=== PATIENT | female | born 1980 | race Caucasian/White ===

== ENCOUNTER 2016-12-09 08:00 | Emergency (ER) | payer MEDICAID, OTHER ==
[2016-12-09 08:13] VITALS: BP 138/70
--- NOTE | 2016-12-09 08:24 | UC ---
Throat Pain/Nasal Mike HPI - HPI Summary HPI Summary: [address], PAIN WITH SWALLOWING. FEELS ACHY AND HAS CHILLS. NO DOCUMENTED FEVER. NO N/V/D. DAUGHTER DIAGNOSED WITH STREP 2 DAYS AGO. - History of Current Complaint Chief Complaint: UCGeneralIllness Stated Complaint: SORE THROAT CHILLS Time Seen by Provider: 12/09/16 08:17 Hx Obtained From: Patient Hx Last Menstrual Period: november 15 Onset/Duration: Gradual Onset, Lasting Days, Still Present Severity: Moderate Pain Intensity: 7 Pain Scale Used: 0-10 Numeric Cough: Nonproductive Associated Signs & Symptoms: Positive: Negative - Allergies/Home Medications Allergies/Adverse Reactions: Allergies Allergy/AdvReac Type Severity Reaction Status Date / Time Latex Allergy Intermediate Hives Verified 08/03/14 16:32 PMH/Surg Hx/FS Hx/Imm Hx Respiratory History Of: Reports: Asthma Neurological History Of: Reports: Migraine - Surgical History Surgical History: None - Family History Known Family History: Positive: Hypertension - Social History Alcohol Use: None Substance Use Type: None Smoking Status (MU): Never Smoked Tobacco - Immunization History Most Recent Influenza Vaccination: 06/27/14 Most Recent Tetanus Shot: 03/24 Most Recent Pneumonia Vaccination: unknown Review of Systems Constitutional: Chills, Fatigue ENT: Sore Throat, Nasal Discharge Respiratory: Cough Cardiovascular: Negative Gastrointestinal: Negative All Other Systems Reviewed And Are Negative: Yes Physical Exam Triage Information Reviewed: Yes Appearance: No Pain Distress, Well-Nourished, Ill-Appearing - MILDLY Vital Signs: Initial Vital Signs Temp 99.0 F 12/09/16 08:07 Pulse 100 12/09/16 08:07 Resp 18 12/09/16 08:07 BP 138/70 12/09/16 08:07 Pulse Ox 98 12/09/16 08:07 Eyes: Positive: Conjunctiva Clear ENT: Positive: Hearing grossly normal, Pharyngeal erythema, TMs normal, Tonsillar swelling, Tonsillar exudate, Other: - PALATAL PETECHIAE Neck: Positive: Supple, Tenderness @ - SPFL CERVICAL LAD, Enlarged Nodes @ - SPFL CERVICAL LAD Respiratory Exam: Normal Cardiovascular Exam: Normal Abdomen Description: Positive: Soft Musculoskeletal: Positive: No Edema Neurological: Positive: Alert Psychological: Positive: Age Appropriate Behavior Skin: Negative: rashes Throat Pain/Nasal Course/Dx - Differential Dx/Diagnosis Provider Diagnoses: STREP PHARYNGITIS - CLINICAL DIAGNOSIS Discharge - Discharge Plan Condition: Stable Disposition: HOME Prescriptions: Amoxicillin CAP* [Amoxicillin 500 MG CAP*] 1,000 mg PO Q12H #40 cap Patient Education Materials: Strep Throat (ED) Referrals: Rohith Roque MD [Primary Care Provider] - If Needed Additional Instructions: OTC CHLORASEPTIC OR CEPACOL LOZENGES FOR SORE THROAT NEEDED ONCE SYMPTOMS RESOLVED - NEW TOOTHBRUSH DO NOT SHARE FOOD, DRINK, UTENSILS
== END 2016-12-09 08:35 | disposition home or self-care (01) ==
LOC: UCEAST 08:00
DX: J02.0 Streptococcal pharyngitis (principal); R21 Rash and other nonspecific skin eruption; J45.909 Unspecified asthma, uncomplicated; G43.909 Migraine, unspecified, not intractable, without status migrainosus; Z91.040 Latex allergy status
CPT/HCPCS: 99212; G0463

== ENCOUNTER 2017-05-18 09:13 | Emergency (ER) | payer OTHER, MEDICAID ==
--- NOTE | 2017-05-18 10:45 | UC ---
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 - History of Current Complaint Chief Complaint: UCGeneralIllness Stated Complaint: VOMITING Time Seen by Provider: 05/18/17 10:45 Hx Obtained From: Patient Hx Last Menstrual Period: november 15 ?: Yes Onset/Duration: Sudden Onset, Lasting Hours - began last night, Still Present Timing: Constant Severity Initially: Moderate Severity Currently: Severe Pain Intensity: 7 Pain Scale Used: 0-10 Numeric Location: Diffuse Radiates: No Character: Cramping Aggravating Factor(s): Nothing Alleviating Factor(s): Nothing Associated Signs and Symptoms: Positive: Decreased Appetite, Nausea, Vomiting Allergies/Adverse Reactions: Allergies Allergy/AdvReac Type Severity Reaction Status Date / Time Latex Allergy Intermediate Hives Verified 05/18/17 09:54 Home Medications: Home Medications NK [No Home Medications Reported] 05/18/17 [History Confirmed 05/18/17] PMH/Surg Hx/FS Hx/Imm Hx Previously Healthy: Yes - Surgical History Surgical History: None - Family History Known Family History: Positive: Hypertension - Social History Occupation: Employed Full-time Lives: With Family Alcohol Use: None Substance Use Type: None Smoking Status (MU): Never Smoked Tobacco - Immunization History Most Recent Influenza Vaccination: 06/27/14 Most Recent Tetanus Shot: 03/24 Most Recent Pneumonia Vaccination: unknown Review of Systems Constitutional: Chills Skin: Negative Eyes: Negative ENT: Negative Respiratory: Negative Cardiovascular: Negative Gastrointestinal: Abdominal Pain, Vomiting, Nausea Genitourinary: Negative Motor: Weakness - right arm with pronator drift Neurovascular: Negative Musculoskeletal: Negative Neurological: Headache Psychological: Negative All Other Systems Reviewed And Are Negative: Yes Physical Exam Triage Information Reviewed: Yes Appearance: Well-Nourished, Ill-Appearing, Pain Distress Vital Signs: Initial Vital Signs Temp 98.2 F 05/18/17 09:48 Pulse 89 05/18/17 09:48 Resp 18 05/18/17 09:48 BP 154/97 05/18/17 09:48 Pulse Ox 100 05/18/17 09:48 Vital Signs Reviewed: Yes Eye Exam: Normal Eyes: Positive: Conjunctiva Clear ENT Exam: Normal ENT: Positive: Normal ENT inspection, Hearing grossly normal, Pharynx normal. Negative: Nasal congestion, Nasal drainage, Trismus, Muffled/hoarse voice Dental Exam: Normal Neck exam: Normal Neck: Positive: Supple, Nontender, No Lymphadenopathy Respiratory Exam: Normal Respiratory: Positive: Chest non-tender, Lungs clear, Normal breath sounds, No respiratory distress, No accessory muscle use Cardiovascular Exam: Normal Cardiovascular: Positive: RRR, No Murmur, Pulses Normal, Brisk Capillary Refill Abdominal Exam: Normal Abdomen Description: Positive: No Organomegaly, Soft Bowel Sounds: Positive: Present Musculoskeletal Exam: Normal Musculoskeletal: Positive: Strength Intact - left, ROM Intact - left, No Edema, Strength Limited @ - right with pronator drift Neurological Exam: Normal Neurological: Positive: Alert, Muscle Tone Normal Psychological Exam: Normal Skin Exam: Normal Abd Pain Female Course/Dx - Course Course Of Treatment: iv, labs, zofran, transfer to [facility] ED via ambulance - Differential Dx/Diagnosis Differential Diagnosis: , Other - hyperemesis, Cerebral Bleed, electrolyte abnormalities Provider Diagnoses: Vomting, hypertension Discharge - Discharge Plan Condition: Guarded Disposition: TRANS HIGHER LVL OF CARE FAC
[2017-05-18] MEDS ORDERED: NS 0.9% 1000 ML* 1,000 ML IV ONE (10:50)
[2017-05-18] MEDS ORDERED: Ondansetron INJ* 2 MG/ML VIAL IV ONE (10:51)
[2017-05-18 11:12] VITALS: BP 128/60
== END 2017-05-18 11:20 | disposition short-term general hospital (02) ==
LOC: UCEAST 09:13
DX: R11.2 Nausea with vomiting, unspecified (principal); I10 Essential (primary) hypertension; R53.1 Weakness; R51 Headache; Z32.01 Encounter for pregnancy test, result positive; Z91.040 Latex allergy status
CPT/HCPCS: 81003; 84702; 96361; 96374; 99213; G0463; J2405

== ENCOUNTER 2017-05-18 11:35 | Observation (INO) | payer OTHER, MEDICAID ==
[2017-05-18] MEDS ORDERED: Acetaminophen TAB* 325 MG PO ONE (12:02)
[2017-05-18] MEDS: NS 0.9% 1000 ML* 2,000 ML IV ONE (12:12)
[2017-05-18 12:52] LABS: Hematocrit 37 % (35-47); Hemoglobin 12.5 g/dl (12.0-16.0); Mean Corpuscular HGB Conc 34 g/dl (31-36); Mean Corpuscular Hemoglobin 30 pg (27-31); Mean Corpuscular Volume 88 fL (80-97); Mean Platelet Volume 7 um3 (7.4-10.4); Red Blood Count 4.15 10^6/ul (4.0-5.4); Red Cell Distribution Width 13 % (10.5-15); White Blood Count 8.2 10^3/ul (3.5-10.8)
[2017-05-18] MEDS ORDERED: Acetaminophen TAB* 325 MG PO PRN (13:00)
[2017-05-18] MEDS ORDERED: Ondansetron INJ* 2 MG/ML VIAL IV PRN (13:00)
[2017-05-18 13:14] LABS: Albumin 4.1 g/dL (3.2-5.2); BUN/Creatinine Ratio 15.8 (8-20); C Reactive Protein 1.11 mg/L (< 5.00); EGFR African American 110.1 (>60); EGFR Non-African American 85.6 (>60); Globulin 2.5 g/dL (2-4); Potassium 3.9 mmol/L (3.5-5.0); Total Bilirubin 0.8 mg/dL (0.2-1.0); Total Protein 6.6 g/dL (6.4-8.9)
[2017-05-18] MEDS ORDERED: Aspirin Low Dose CHEW TAB* 81 MG PO ONE (13:14)
[2017-05-18] MEDS ORDERED: Butalb/Acetamin/Caff TAB* 1 TAB PO ONE (13:14)
--- NOTE | 2017-05-18 14:25 | RAD ---
CPT II: CPT II Codes: 3100F . Indication: , right-sided weakness. Duplex Doppler sonography of the carotid arteries was performed. Right common carotid artery demonstrates no intimal wall thickening. Peak systolic velocity of the distal right common carotid artery 120 cm/s. Peak systolic velocity of the right internal carotid arteries 86 cm/s. ICA/CC ratios 0.72. Right vertebral artery demonstrates antegrade flow. Left common carotid artery demonstrates no intimal wall thickening. No significant plaque is noted. Peak systolic velocity of the distal common carotid artery is 116 cm/s. Peak systolic velocity of the proximal left internal carotid arteries 85 cm/s. The IC/CC ratios 0.73. Left vertebral artery demonstrates antegrade flow. IMPRESSION: Normal carotid ultrasound with no definite plaque.
--- NOTE | 2017-05-18 15:49 | RAD ---
INDICATION: CVA. Migraines. COMPARISON: None TECHNIQUE: sagittal T1 FLAIR, axial diffusion, axial T1 FLAIR, axial T2, axial T2 FLAIR, and SWI images were acquired. FINDINGS: Craniocervical junction: The craniocervical junction appears normal. Ventricles/sulci: The ventricles and cisterns are normal in size and configuration for age. Brain parenchyma: There are no focal parenchymal abnormalities. There is no evidence of intracranial mass or mass effect. The diffusion weighted images show no evidence of acute ischemia. Intracranial hemorrhage: There is no intracranial hemorrhage. Extra-axial spaces: There are no extra-axial fluid collections or masses. Orbits: There are no MR abnormalities of the orbital structures. Paranasal sinuses/mastoid: There is minimal ethmoid sinus mucosal thickening. The paranasal sinuses are otherwise clear. The mastoid air cells are well aerated.. Vascular: No abnormalities are seen. Other: None IMPRESSION: NO INTRACRANIAL ABNORMALITIES.
--- NOTE | 2017-05-18 16:09 | ED ---
Esvin Jackson Angela, scribed for Kana Shin MD on 05/18/17 at 1213 . - HPI Summary HPI Summary: This pt is a 36 y/o female, A1 currently 7 weeks , BIBA from [facility] presenting to [facility] c/o vomiting since last night at around 2230. She notes not being able to keep anything down since last night, and has had decreased PO intake. Pt reports associated headache and nausea. She states that 2 days ago she felt nauseous but didn't have a headache. Yesterday pt notes she woke up with a headache that gradually worsened throughout the day. She took tylenol with minimal relief, her last dose was yesterday at 1700. Pt describes her headache located at the base of her head and radiating up. Pt states that she has PMHx of migraines, but with her typical migraines she gets auras, light and sound sensitivity. Her headache is aggravated by vomiting and sitting up. Pt denies fever, chills, light-headedness, abd pain, dysuria, hematuria, bloody stools, diarrhea, constipation, rhinorrhea, sore throat, neck pain, back pain. She was transferred from [facility] where she was given Zofran with mild relief of nausea. 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 She reports weakness in her legs and difficulty keeping up, secondary to illness. Pt denies difficulty with speech, trauma to her right arm , previous weakness in arm. LNMP: March 31 - History of Current Complaint Chief Complaint: EDNauseaVomitDiarrh Stated Complaint: VOMITTING Time Seen by Provider: 05/18/17 11:42 Hx Obtained From: Patient Onset/Duration: Started Days Ago Timing: Lasting Days - 1 day Aggravating Factors: Movement Alleviating Factors: Medication - Assessment Hx Now: Yes - 7 weeks Hx : 6 Hx Para: 3 SAB: 1 IEA: 1 - Additional Pertinent History Maternal Blood Type and Rh: A Positive - Allergies/Home Medications Allergies/Adverse Reactions: Allergies Allergy/AdvReac Type Severity Reaction Status Date / Time Latex Allergy Intermediate Hives Verified 05/18/17 09:54 PMH/Surg Hx/FS Hx/Imm Hx Endocrine/Hematology History: Denies: Hx Diabetes, Hx Thyroid Disease Cardiovascular History: Denies: Hx Hypertension Respiratory History: Reports: Hx Asthma Denies: Hx Chronic Obstructive Pulmonary Disease (COPD) GI History: Denies: Hx Ulcer Neurological History: Reports: Hx Migraine Infectious Disease History: Denies: Hx Clostridium Difficile, Hx Hepatitis, Hx Human Immunodeficiency Virus (HIV), Hx of Known/Suspected MRSA, Hx Shingles, Hx Tuberculosis, Hx Known/ Suspected VRE, Hx Known/Suspected VRSA, History Other Infectious Disease, Traveled Outside the [place] in Last 30 Days - Family History Known Family History: Positive: Hypertension - Social History Alcohol Use: None Substance Use Type: Reports: None Smoking Status (MU): Never Smoked Tobacco Review of Systems Negative: Fever, Chills Negative: Sore Throat, Nasal Discharge Cardiovascular: Negative Respiratory: Negative Gastrointestinal: Negative - constipation, bloody stools Positive: Vomiting, Nausea. Negative: Diarrhea Negative: dysuria, hematuria Musculoskeletal: Negative - back pain, neck pain, stiff neck Skin: Negative Neurological: Negative - light-headedness Positive: Headache, Weakness - on right hand All Other Systems Reviewed And Are Negative: Yes Physical Exam - Physical Exam Triage Information Reviewed: Yes Vital Signs On Initial Exam: Initial Vitals Temp Pulse Resp BP Pulse Ox 99 F 78 16 122/68 99 05/18/17 12:00 05/18/17 12:00 05/18/17 12:00 05/18/17 12:00 05/18/17 12:00 Vital Signs Reviewed: Yes Appearance: Positive: Well-Appearing, Pain Distress - moderate pain distress Skin: Positive: Warm, Skin Color Reflects Adequate Perfusion, Dry Head/Face: Positive: Normal Head/Face Inspection Eyes: Positive: EOMI, MICHELA ENT: Positive: Normal ENT inspection, Pharynx normal, TMs normal Neck: Positive: Supple, Nontender Respiratory/Lung Sounds: Positive: Clear to Auscultation, Breath Sounds Present Cardiovascular: Positive: RRR Abdomen Description: Positive: Nontender, Soft Bowel Sounds: Positive: Present Musculoskeletal: Positive: Normal, Strength/ROM Intact Neurological: Positive: Normal, Sensory/Motor Intact, Alert, Oriented to Person Place, Time Psychiatric: Positive: Affect/Mood Appropriate Diagnostics - Vital Signs Vital Signs Temp Pulse Resp BP Pulse Ox 05/18/17 12:07 82 99 05/18/17 12:00 99 F 78 16 122/68 99 - Laboratory Lab Results: Lab Results 05/18/17 05/18/17 05/18/17 Range/Units 12:43 12:43 12:43 WBC (3.5-10.8) 10^3/ul RBC (4.0-5.4) 10^6/ul Hgb (12.0-16.0) g/dl Hct (35-47) % MCV (80-97) fL MCH (27-31) pg MCHC (31-36) g/dl RDW (10.5-15) % Plt Count (150-450) 10^3/ul MPV (7.4-10.4) um3 Neut % (Auto) (38-83) % Lymph % (Auto) (25-47) % [place] % (Auto) (1-9) % Eos % (Auto) (0-6) % Baso % (Auto) (0-2) % Absolute Neuts (auto) (1.5-7.7) 10^3/ul Absolute Lymphs (auto) (1.0-4.8) 10^3/ul Absolute Monos (auto) (0-0.8) 10^3/ul Absolute Eos (auto) (0-0.6) 10^3/ul Absolute Basos (auto) (0-0.2) 10^3/ul Absolute Nucleated RBC 10^3/ul Nucleated RBC % INR (Anticoag Therapy) 0.98 (0.89-1.11) APTT 24.1 L (26.0-36.3) seconds Sodium 139 (133-145) mmol/L Potassium 3.9 (3.5-5.0) mmol/L Chloride 110 (101-111) mmol/L Carbon Dioxide 22 (22-32) mmol/L Anion Gap 7 (2-11) mmol/L BUN 12 (6-24) mg/dL Creatinine 0.76 (0.51-0.95) mg/dL Est GFR ( Amer) 110.1 (>60) Est GFR (Non-Af Amer) 85.6 (>60) BUN/Creatinine Ratio 15.8 (8-20) Glucose 95 (70-100) mg/dL Lactic Acid 0.9 (0.5-2.0) mmol/L Calcium 9.0 (8.6-10.3) mg/dL Total Bilirubin 0.80 (0.2-1.0) mg/dL AST 18 (13-39) U/L ALT 11 (7-52) U/L Alkaline Phosphatase 44 (34-104) U/L C-Reactive Protein 1.11 (< 5.00) mg/L Total Protein 6.6 (6.4-8.9) g/dL Albumin 4.1 (3.2-5.2) g/dL Globulin 2.5 (2-4) g/dL Albumin/Globulin Ratio 1.6 (1-3) Lipase 35 (11.0-82.0) U/L Beta HCG, Quant 81038.00 mIU/mL 05/18/17 Range/Units 12:43 WBC 8.2 (3.5-10.8) 10^3/ul RBC 4.15 (4.0-5.4) 10^6/ul Hgb 12.5 (12.0-16.0) g/dl Hct 37 (35-47) % MCV 88 (80-97) fL MCH 30 (27-31) pg MCHC 34 (31-36) g/dl RDW 13 (10.5-15) % Plt Count 211 (150-450) 10^3/ul MPV 7 L (7.4-10.4) um3 Neut % (Auto) 86.1 H (38-83) % Lymph % (Auto) 8.4 L (25-47) % [place] % (Auto) 4.8 (1-9) % Eos % (Auto) 0.2 (0-6) % Baso % (Auto) 0.5 (0-2) % Absolute Neuts (auto) 7.1 (1.5-7.7) 10^3/ul Absolute Lymphs (auto) 0.7 L (1.0-4.8) 10^3/ul Absolute Monos (auto) 0.4 (0-0.8) 10^3/ul Absolute Eos (auto) 0 (0-0.6) 10^3/ul Absolute Basos (auto) 0 (0-0.2) 10^3/ul Absolute Nucleated RBC 0 10^3/ul Nucleated RBC % 0 INR (Anticoag Therapy) (0.89-1.11) APTT (26.0-36.3) seconds Sodium (133-145) mmol/L Potassium (3.5-5.0) mmol/L Chloride (101-111) mmol/L Carbon Dioxide (22-32) mmol/L Anion Gap (2-11) mmol/L BUN (6-24) mg/dL Creatinine (0.51-0.95) mg/dL Est GFR ( Amer) (>60) Est GFR (Non-Af Amer) (>60) BUN/Creatinine Ratio (8-20) Glucose (70-100) mg/dL Lactic Acid (0.5-2.0) mmol/L Calcium (8.6-10.3) mg/dL Total Bilirubin (0.2-1.0) mg/dL AST (13-39) U/L ALT (7-52) U/L Alkaline Phosphatase (34-104) U/L C-Reactive Protein (< 5.00) mg/L Total Protein (6.4-8.9) g/dL Albumin (3.2-5.2) g/dL Globulin (2-4) g/dL Albumin/Globulin Ratio (1-3) Lipase (11.0-82.0) U/L Beta HCG, Quant mIU/mL Result Diagrams: 05/18/17 12:43 05/18/17 12:43 Lab Statement: Any lab studies that have been ordered have been reviewed, and results considered in the medical decision making process. Course/Dx - Course Assessment/Plan: This pt is a 36 y/o female, A1 currently 7 weeks , BIBA from [facility] presenting to [facility] c/o vomiting since last night at around 2230. She notes not being able to keep anything down since last night, and has had decreased PO intake. Pt reports associated headache and nausea. She states that 2 days ago she felt nauseous but didn't have a headache. Yesterday pt notes she woke up with a headache that gradually worsened throughout the day. Labs and UA were obtained. In the ED course, the pt was given IV fluids and acetaminophen. I spoke with Dr. Zhang, from neurology, who saw the pt in the ED. Pt will be admitted by Dr. Beckford in stable condition. Elevated BP noted and advised to follow up with PCP. Medications reviewed. DR ZHANG, NEUROLOGY , SAW PATIENT IN ED. ADMIT HOSPITALIST STABLE. NO CRITICAL CARE TIME. - Diagnoses Provider Diagnoses: Vomiting, Dehydration, Headache, Right arm weakness - Provider Notifications Discussed Care Of Patient With: Gisele Beckford Time Discussed With Above Provider: 12:22 Instructed by Provider To: Other - I discussed the pt's case with Dr. Beckford, she has agreed to admit the pt. Discharge - Discharge Plan Condition: Stable Disposition: ADMITTED TO [facility] The documentation as recorded by the Esvin hunter Angela accurately reflects the service I personally performed and the decisions made by me, Kana Shin MD.
--- NOTE | 2017-05-18 16:11 | HP ---
ADDENDUM NOW INCLUDED ON THIS REPORT CC: Dr. Lopez; Dr. Zhang; Dr. Mooney * HISTORY AND PHYSICAL: DATE OF ADMISSION: 05/18/17 PRIMARY CARE PROVIDER: Dr. Lopez. CONSULTING ACETY[employer]E [employer]ORCH BURNER AND DATA WAREHOUSE ADMINISTRATOR: Dr. Mooney. CONSULTING NEUROLOGIST: Dr. Zhang. ATTENDING PHYSICIAN WHILE IN THE HOSPITAL: Gisele Beckford DO * (report dictated by Gerson Coffman NP). CHIEF COMPLAINT: 1. Headache. 2. Right-sided weakness. HISTORY OF PRESENT ILLNESS: Ms. 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 She comes in today stating that last night around the evening time, she started having a headache mostly in the back of her head that radiated from the back of her head and then to the front of her head, and she felt like her head was going to pop off. It got progressively worse. She had no associated fever, neck pain or confusion with this. She says that throughout the night, she was noticing that she was nauseous and having vomiting. She says that this headache is not the worst headache of her life, but it is pretty severe, she says. She says that she is 7 weeks . She also admits to having woken up around 8 o'clock today and she noticed about 15 minutes into her day that her right arm felt weaker. She was having numbness and tingling to that arm. She also noted that when she tried to write her name , she was having difficulty. She did admit to feeling nauseous with this. She does admit to having some photophobia as well. [facility] and they were concerned and sent her into the hospital. She denies having any chest pain, shortness of breath. No cough, runny nose, sore throat or having any congestion. She was taking Tylenol, was not helping. Because of the right arm weakness, she came into the hospital here today, was evaluated. There was concern for this that it may represent atypical migraine and possible stroke, so we were asked to evaluate for admission. PAST MEDICAL HISTORY: Significant for: 1. Migraines. 2. Exercise-induced asthma. PAST SURGICAL HISTORY: She has had Eustachian tubes placed. HOME MEDICATIONS: Include vitamin, multiple vitamin p.o. daily. ALLERGIES TO MEDICATIONS: Include LATEX. FAMILY HISTORY: She specifically denied having her mother or father having history of strokes, cancers, diabetes, or heart attacks. SOCIAL HISTORY: She does not smoke. She occasionally drinks alcohol, but has not drank since she has been . Her surrogate decision makers are her mother and boyfriend. REVIEW OF SYSTEMS: There is no documented fever. Denied having any significant weight change. There was no double vision. There is no ear discharge. She denies having any rhinorrhea. There was no sore throat. No thyroid enlargement. She denied having any chest pain. There was no orthopnea. There was no nocturnal dyspnea. No dysuria, no frequency. No seizure. No loss of consciousness. Review of 14 systems completed, all others negative. PHYSICAL EXAMINATION GENERAL: At this time, Ms. Ferguson is a 36-year-old female patient. She appears to be well nourished, well developed. She does not appear to be in any acute distress. VITAL SIGNS: Blood pressure 115/66, pulse 78, respirations 16, O2 sat 97%, temperature 99.0. HEENT: Head is atraumatic. Eyes: EOMs are intact. Sclerae anicteric, not pale. NECK: Supple. Throat: Oral mucosa appears to be moist. No oropharyngeal erythema. LUNGS: Clear to auscultation bilaterally. No wheezes, rales or rhonchi. HEART: Sounds S1 and S2. Regular rate and rhythm. No murmurs, rubs or gallops. ABDOMEN: Soft, flat, nontender. Bowel sounds present. EXTREMITIES: Pulses 2+ throughout. She did have 5/5 strength. NEUROLOGIC: The patient is awake, she is alert, she is oriented x3. Her speech was clear. Tongue midline. Pijomr-sw-gwew intact bilaterally. Heel-to- waggoner intact bilaterally. She did have some pronator drift on the right side, but no other gross focal deficits. SKIN: Intact. LABORATORY DATA/IMAGING: Today revealed a WBC of 8.2, RBC of 4.14, hemoglobin of 12.5, hematocrit of 37, platelet count of 211,000. INR 0.98, PTT is 24.1. Sodium is 139, potassium is 3.9, chloride 110, bicarb 22, BUN 12, creatinine 0.76, glucose 95, lactate 0.9, calcium 9, total bili 0.8. AST 18, ALT 11, alk phos 44. Albumin was 4.1. Beta-HCG is pending. An EKG is pending. Old medical records reviewed. ASSESSMENT AND PLAN: Ms. Ferguson is a 36-year-old female patient coming into the ER today with complaints of headache and associated right-sided weakness. She will be admitted under observation status for: 1. Migraine versus possible cerebrovascular accident. At this point, I did touch base with Dr. Zhang. Her weakness does seem to actually have improved, which may indicate that she may have a complex migraine. At this point, we would like to hold off on MRI. If she does not improve, we will consider getting the MRI. I will discuss with Radiology to see when is the safest time to do MRIs in . At this point, we are holding off and we are going to do the carotid ultrasound and we will do an echo and we will place her on telemetry. We will get neuro checks. I did touch base with [facility]. It is okay to go ahead and give the baby aspirin currently, so we will continue with this and it is also okay to give Fioricet, so we will give Fioricet and aspirin to the patient to help with her migrainous symptoms. We will get neuro checks frequently and we will follow. 2. Asthma, not an active issue currently. We will continue to monitor. 3. . She is 7 weeks , she is a . Again, I did consult with [facility]. She has followup appointment on 06/10/17. 4. DVT prophylaxis. I am going to go ahead and put her on SCDs. 5. Code status. Full code. 6. Fluids, electrolytes, nutrition. She can have a regular diet, but I am going to start her out with clears. TIME SPENT: Time spent on the admission was approximately 60 minutes, greater than half the time spent face to face with the patient obtaining my history and physical, the other half of the time spent going over the plan of care with the patient and implementing the plan of care. I did discuss the plan of care with my attending, Dr. Beckford, she is in agreement. GERSON COFFMAN NP ADDENDUM: I did touch base with our Radiology on-call, Dr. Ortiz, to discuss the case with him about MRI of the brain and the fact that the patient is 7 weeks . Radiology felt that there was no contraindication at this point to perform the test. I touched base with Dr. Zhang, who wanted to perform the test to rule out CVA and so we did order the MRI without contrast. GERSON COFFMAN NP [id number]/CPS #: [id number]/CPS #: [id number] GARTH
--- NOTE | 2017-05-18 16:20 | CONS ---
CONSULTATION REPORT: DATE OF CONSULTATION: 05/18/17 REASON FOR CONSULT: I was consulted by the hospitalist service, Lakhwinder Coffman, a certified nurse practitioner. HISTORY OF PRESENT ILLNESS: Ms. Ferguson is a 36-year-old 6, para 3-0-2-3 , with the last menstrual period of 03/31/17 with a based on her last menstrual period at 7 weeks' estimated gestational age. She presented to the emergency room after she was transferred from the [facility] with complaints of migraine headache with subsequent right arm weakness and decreased sensation. In the emergency room, she was evaluated by the hospitalist service as well as by the neurologist and she is being ruled out for a possible cerebrovascular accident. I was consulted for an opinion on treatment of her migraines and the possible use of aspirin in . PAST MEDICAL HISTORY: Migraine headaches. PAST SURGICAL HISTORY: None. MEDICATIONS: None. ALLERGIES: No known drug allergies OBSTETRICAL HISTORY: She has had 3 full term spontaneous vaginal deliveries, 1 miscarriage and 1 elective termination. GYNECOLOGICAL HISTORY: Unremarkable. FAMILY HISTORY: Maternal grandfather has stroke and has a history of hypertension. SOCIAL HISTORY: She denies cigarettes, alcohol or drug use. REVIEW OF SYSTEMS: The patient denied vaginal bleeding or pelvic pain. She did have abdominal pain, nausea, and vomiting with her headache, but at the time of my speaking with her this had resolved. PHYSICAL EXAMINATION: The patient is alert, awake, oriented x3. She appeared in no apparent distress. Her vital signs are stable, temperature of 98.2, pulse of 80, respiratory rate 18 with a pulse ox of 100% on room air. Her initial blood pressure in the emergency room of 154/97. In the emergency room, she received Fioricet, a baby aspirin was ordered as well as Zofran and Tylenol , and she is receiving normal saline IV fluid. Physical exam by me was deferred. Please refer to the emergency room physician, hospitalist, and neurologist for her physical exam. IMPRESSION: This is a 36-year-old patient with the of 7 weeks in the first trimester. Both Fioricet and baby aspirin are not contraindicated in the first trimester of . They, however, should not be used in the third trimester of the , Fioricet because butalbital has had shown significant side effects, and withdrawal symptoms on the child and aspirin in the third trimester particularly a full dose is associated with a persisitent ductus arteriosus, therefore, these are contraindicated in the third trimester; however, they are okay at this gestational age. Allan is fine as well as Tylenol. She can also receive narcotics for her headaches. RECOMMENDATIONS: Please reconsult if there are any other questions. Thank you for letting me to participate in the care of this patient. [id number]/[facility] #: [id number] MTDD
--- NOTE | 2017-05-18 16:20 | HP ---
HISTORY AND PHYSICAL: ADDENDUM: I did touch base with our Radiology on-call, Dr. Ortiz, to discuss the case with him about MRI of the brain and the fact that the patient is 7 weeks . Radiology felt that there was no contraindication at this point to perform the test. I touched base with Dr. Zhang, who wanted to perform the test to rule out CVA and so we did order the MRI without contrast. TORY GONZALES, PHYSICIST CRYOGENICS [id number]/[facility] #: [id number] MTDSusan
[2017-05-18] MEDS: NS 0.9% 1000 ML* 1,000 ML IV SCH (16:22)
[2017-05-18] MEDS: Butalb/Acetamin/Caff TAB* 1 TAB PO PRN (18:20)
--- NOTE | 2017-05-18 22:38 | CONS ---
CONSULTATION REPORT: DATE OF CONSULT: 05/18/17 PATIENT OF: Dr. Lopez; Dr. Mooney; Gerson Coffman NP HISTORY OF PRESENT ILLNESS: This is a 36-year-old, 7-week woman who presents with right-sided weakness with a history of headaches. She has had nausea and vomiting over the night and then between 8 and 8:30, sometime shortly after she woke up, right hand weakness. 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 She had some photophobia, numbness and tingling in that arm. She had no weakness in the leg, although felt weak all over. There was no speech problem. Her headache was moderately severe with throbbing and vomiting. She was seen initially at the [facility] and was transferred here for further evaluation of possible stroke. Of note, she has had prior migraines in the past, with throbbing, vomiting and photophobia, but no focal deficits in the past. There is a family history for migraine, but no known hemiplegia with migraine. No history of stroke. I was called shortly after 12 and saw her beginning at 12:10. By the time I had a chance to begin the evaluation, it was too late to get an emergency CT scan and consider TPA. Both the CT scan and the TPA would have been possibly problematic in a woman, but at 12:10 to 12:15 when I began the evaluation, she had trace weakness in the right hand and a slight pronator drift. There were no speech problems, no leg weakness. There was some numbness in the hand. She was able to write her name, although she said it looked a little floppy. I discussed if we could try to get the CT scan quickly enough to have her back in time for the TPA, but it was unlikely that she would meet the time window, and at that point, even in somebody who is not , the pros and cons would basically balance each other out. She was not interested in pursuing at all. She has migraines that now increased in frequency to twice a week, but they are relatively mild and she can continue her daily functioning. They are throbbing headaches, occasionally with nausea, but no deficits, no other symptoms. She has not had hemiplegia or any focal deficits with any prior migraines including during prior pregnancies. She has had 1 miscarriage, 1 planned and 1 living child. She also has exercise-induced asthma. She has had Eustachian tubes placed as her only surgery. MEDICATIONS: Her medications at home include vitamins. ALLERGIES: She is allergic to LATEX. FAMILY HISTORY: There is no family history for stroke. There is a sister who had elevated troponins and was evaluated for [place], but the family does not think she had a stroke. SOCIAL HISTORY: She does not smoke. She occasionally drinks alcohol, but none since she has been . REVIEW OF SYSTEMS: Negative in all 14 spheres. She has had no visual symptoms with this other than photophobia and no lightheadedness. PHYSICAL EXAMINATION: Temperature 98.3, pulse 85, respirations 16, blood pressure 109/60. She is alert and oriented with normal speech and comprehension. Cranial nerves II through XII were intact. Fundi were benign. There was no facial weakness. No field cut to large object. We saw her at 3:30, showed 5/5 strength, normal tone. Reflexes 2 and equal. Normal sensation. Chest: Clear. Cardiovascular: Regular rate and rhythm. Abdomen: Soft, positive bowel sounds. There were some subtle changes from my prior evaluation at roughly 12:15. She had a right pronator drift when I initially saw her and some fine motor findings on the right side that were subtle. She could still write her name at that point, though speech was intact at both times. DIAGNOSTIC STUDIES/LAB DATA: An MRI scan was obtained after consultation with the radiologist, who per Gerson Coffman did not think there was a contraindication. MRI scan was normal to my eyes as well as the radiologist. Carotid ultrasound was negative. EKG was negative. She is going to have a cardiac echo. Her CBC was normal. INR 0.98, PTT 24.1. Chemistry was normal. Beta-hCG was elevated in keeping with her . 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 We are going to do a hypercoagulable workup including looking for phospholipid syndrome and we are going to have her on a baby aspirin for now. I will see her back in a few weeks' time and she is going to keep a headache diary. Her headaches at this point are mild, but if they increase in severity or they are quite frequent, then we would consider putting her on a daily prophylactic medicine both to control the headaches, but also because of the concern of hemiplegic migraine and issue of migrainous stroke. Unfortunately, I discussed that even if her headaches did not get worse , it is conceivable that she would have occasional hemiplegic migraines or even a risk of migrainous stroke. She is going to be on baby aspirin for the first 2 trimesters of her and we will see how she clinically does. Thank you for sharing her case. [id number]/[facility] #: [id number] GARTH
[2017-05-19] MEDS: NS 0.9% 1000 ML* 1,000 ML IV SCH (03:23)
[2017-05-19 05:32] LABS: BUN/Creatinine Ratio 13.2 (8-20); Calcium 7.9 mg/dL (8.6-10.3); EGFR African American 125.2 (>60); EGFR Non-African American 97.4 (>60); HDL Cholesterol 35.1 mg/dL; Potassium 3.5 mmol/L (3.5-5.0)
[2017-05-19] MEDS: Butalb/Acetamin/Caff TAB* 1 TAB PO PRN (05:39)
[2017-05-19 06:18] LABS: Urine Bilirubin Negative (Negative); Urine Glucose Negative (Negative); Urine Nitrite Negative (Negative)
[2017-05-19 08:16] VITALS: BP 103/69
[2017-05-19] MEDS ORDERED: Aspirin Low Dose CHEW TAB* 81 MG PO SCH (09:00)
[2017-05-19] MEDS ORDERED: Prenatal Vitamin TAB PO SCH (09:00)
[2017-05-19] MEDS ORDERED: Ibuprofen TAB* 600 MG PO PRN (09:24)
--- NOTE | 2017-05-19 09:31 | DCNOTE ---
Subjective Date of Service: 05/19/17 Interval History: Headache better. No more R arm numbness/tingling/weakness. Ate OK. Anxious to go home. Objective Active Medications: Acetaminophen (Tylenol Tab*) 650 mg PO Q4H PRN PRN Reason: FEVER/PAIN Ibuprofen (Motrin Tab*) 600 mg PO Q6H PRN PRN Reason: PAIN Multivitamins ( Vitamin Tab*) 1 tab PO DAILY MANUELITO Last Admin: 05/19/17 08:18 Dose: 1 tab Vital Signs 05/18/17 05/18/17 05/18/17 12:59 13:00 14:50 Temperature Pulse Rate 76 78 Respiratory 16 16 Rate Blood Pressure 111/67 115/66 (mmHg) O2 Sat by Pulse 97 97 Oximetry 05/18/17 05/18/17 05/18/17 14:51 18:20 19:41 Temperature 98.3 F 98.5 F Pulse Rate 86 75 Respiratory 16 18 16 Rate Blood Pressure 109/60 111/62 (mmHg) O2 Sat by Pulse 100 98 Oximetry 05/18/17 05/19/17 05/19/17 20:20 00:15 02:01 Temperature 98.4 F Pulse Rate 77 Respiratory 18 20 Rate Blood Pressure 125/66 (mmHg) O2 Sat by Pulse 96 96 Oximetry 05/19/17 05/19/17 05/19/17 04:02 05:39 07:37 Temperature 98.1 F 98.5 F Pulse Rate 66 64 Respiratory 20 17 16 Rate Blood Pressure 119/68 103/69 (mmHg) O2 Sat by Pulse 99 99 Oximetry 05/19/17 07:39 Temperature Pulse Rate Respiratory 16 Rate Blood Pressure (mmHg) O2 Sat by Pulse Oximetry Oxygen Devices in Use Now: None Appearance: Alert, sitting up in bed. In good spirits. Looks comfortable. Eyes: No Scleral Icterus Neck: NL Appearance and Movements; NL JVP, No Thyroid Enlargement, Masses Respiratory: Symmetrical Chest Expansion and Respiratory Effort, Clear to Auscultation, Clear to Percussion Cardiovascular: NL Sounds; No Murmurs; No JVD, RRR, No Edema, - Extremities: No Edema, No Clubbing, Cyanosis, - Skin: No Rash or Ulcers, No Nodules or Sclerosis, - Neurological: Alert and Oriented x 3, NL Sensation Result Diagrams: 05/18/17 12:43 05/19/17 05:09 Additional Lab and Data: Lab Results 05/18/17 05/18/17 05/18/17 Range/Units 12:43 12:43 12:43 WBC (3.5-10.8) 10^3/ul RBC (4.0-5.4) 10^6/ul Hgb (12.0-16.0) g/dl Hct (35-47) % MCV (80-97) fL MCH (27-31) pg MCHC (31-36) g/dl RDW (10.5-15) % Plt Count (150-450) 10^3/ul MPV (7.4-10.4) um3 Neut % (Auto) (38-83) % Lymph % (Auto) (25-47) % [place] % (Auto) (1-9) % Eos % (Auto) (0-6) % Baso % (Auto) (0-2) % Absolute Neuts (auto) (1.5-7.7) 10^3/ul Absolute Lymphs (auto) (1.0-4.8) 10^3/ul Absolute Monos (auto) (0-0.8) 10^3/ul Absolute Eos (auto) (0-0.6) 10^3/ul Absolute Basos (auto) (0-0.2) 10^3/ul Absolute Nucleated RBC 10^3/ul Nucleated RBC % INR (Anticoag Therapy) 0.98 (0.89-1.11) APTT 24.1 L (26.0-36.3) seconds Sodium 139 (133-145) mmol/L Potassium 3.9 (3.5-5.0) mmol/L Chloride 110 (101-111) mmol/L Carbon Dioxide 22 (22-32) mmol/L Anion Gap 7 (2-11) mmol/L BUN 12 (6-24) mg/dL Creatinine 0.76 (0.51-0.95) mg/dL Est GFR ( Amer) 110.1 (>60) Est GFR (Non-Af Amer) 85.6 (>60) BUN/Creatinine Ratio 15.8 (8-20) Glucose 95 (70-100) mg/dL Lactic Acid 0.9 (0.5-2.0) mmol/L Calcium 9.0 (8.6-10.3) mg/dL Total Bilirubin 0.80 (0.2-1.0) mg/dL AST 18 (13-39) U/L ALT 11 (7-52) U/L Alkaline Phosphatase 44 (34-104) U/L C-Reactive Protein 1.11 (< 5.00) mg/L Total Protein 6.6 (6.4-8.9) g/dL Albumin 4.1 (3.2-5.2) g/dL Globulin 2.5 (2-4) g/dL Albumin/Globulin Ratio 1.6 (1-3) Lipase 35 (11.0-82.0) U/L Beta HCG, Quant 79851.00 mIU/mL 05/18/17 Range/Units 12:43 WBC 8.2 (3.5-10.8) 10^3/ul RBC 4.15 (4.0-5.4) 10^6/ul Hgb 12.5 (12.0-16.0) g/dl Hct 37 (35-47) % MCV 88 (80-97) fL MCH 30 (27-31) pg MCHC 34 (31-36) g/dl RDW 13 (10.5-15) % Plt Count 211 (150-450) 10^3/ul MPV 7 L (7.4-10.4) um3 Neut % (Auto) 86.1 H (38-83) % Lymph % (Auto) 8.4 L (25-47) % [place] % (Auto) 4.8 (1-9) % Eos % (Auto) 0.2 (0-6) % Baso % (Auto) 0.5 (0-2) % Absolute Neuts (auto) 7.1 (1.5-7.7) 10^3/ul Absolute Lymphs (auto) 0.7 L (1.0-4.8) 10^3/ul Absolute Monos (auto) 0.4 (0-0.8) 10^3/ul Absolute Eos (auto) 0 (0-0.6) 10^3/ul Absolute Basos (auto) 0 (0-0.2) 10^3/ul Absolute Nucleated RBC 0 10^3/ul Nucleated RBC % 0 INR (Anticoag Therapy) (0.89-1.11) APTT (26.0-36.3) seconds Sodium (133-145) mmol/L Potassium (3.5-5.0) mmol/L Chloride (101-111) mmol/L Carbon Dioxide (22-32) mmol/L Anion Gap (2-11) mmol/L BUN (6-24) mg/dL Creatinine (0.51-0.95) mg/dL Est GFR ( Amer) (>60) Est GFR (Non-Af Amer) (>60) BUN/Creatinine Ratio (8-20) Glucose (70-100) mg/dL Lactic Acid (0.5-2.0) mmol/L Calcium (8.6-10.3) mg/dL Total Bilirubin (0.2-1.0) mg/dL AST (13-39) U/L ALT (7-52) U/L Alkaline Phosphatase (34-104) U/L C-Reactive Protein (< 5.00) mg/L Total Protein (6.4-8.9) g/dL Albumin (3.2-5.2) g/dL Globulin (2-4) g/dL Albumin/Globulin Ratio (1-3) Lipase (11.0-82.0) U/L Beta HCG, Quant mIU/mL Assess/Plan/Problems-Billing Assessment: - Patient Problems (1) Migraine Current Visit: Yes Status: Acute Code(s): G43.909 - MIGRAINE, UNSP, NOT INTRACTABLE, WITHOUT STATUS MIGRAINOSUS SNOMED Code(s): 85943453 Comment: Improved. Recommended ibuprofen PRN migraine. Fup her PCP and OB. (2) Current Visit: No Status: Acute Priority: High Onset Date: 12/12/14 Comment: Fup her OB.
--- NOTE | 2017-05-19 12:05 | DS ---
DATE OF ADMISSION: 05/18/2017. DATE OF DISCHARGE: 05/19/2017. HISTORY OF PRESENT ILLNESS: This 36-year-old woman presented with headache, right- sided weakness, numbness and tingling. The history is detailed in the admission note. I note she has had migraine headaches for about ten years. She said this was not the worst headache she has every had. She had some photophobia and she thought that this headache was consistent with her previous migraine heada ches. The patient was admitted to the telemetry unit. She was given aspirin and Fioricet. The next morni ng, the headache was improved. Her neurological symptoms had resolved completely. She underwent MR I of the brain and ultrasound of the carotids. Both these studies were unremarkable. I recommended on discharge she take ibuprofen, which is a class B drug in the first and second trime ster, but warned her not to take it in the third trimester. FINAL DIAGNOSES: 1. Migraine. 2. . DISCHARGE MEDICATIONS: 1. Acetaminophen 650 mg every 4 hours prn. 2. Ibuprofen 600 mg every 6 hours prn. 3. vitamin one daily. [id number]/[facility] #: [id number]
[2017-05-19 14:25] LABS: Phospholipid Ab IgG < 9.4 GPL; Phospholipid Ab IgM, S < 9.4 MPL
[2017-05-20 10:35] LABS: Protein C Activity 100 % (70 - 150)
[2017-05-20 12:26] LABS: LAC APTT 25 sec (26 - 36); LAC INR 1.1; Lac DRVVT Screen Ratio 0.8 ratio (0.0 - 1.1); Prothrombin Time(LAC) 11.8 sec
[2017-05-20 16:12] LABS: Phospholipid Ab IgG < 9.4 GPL; Phospholipid Ab IgM, S < 9.4 MPL
[2017-05-21 09:48] LABS: Factor V Leiden Mutation Negative (Negative); Prothrombin 20210 Mutation Negative (Negative)
== END 2017-05-19 10:29 | disposition home or self-care (01) ==
LOC: ED 11:35 → MEDTELE 12:57
PROVIDERS: ADMIT Hospitalist; ATTEND Internal Medicine
DX: G43.409 Hemiplegic migraine, not intractable, without status migrainosus (principal); R53.1 Weakness; R20.0 Anesthesia of skin; R20.2 Paresthesia of skin; R11.10 Vomiting, unspecified; E86.0 Dehydration; J45.990 Exercise induced bronchospasm; Z33.1 Pregnant state, incidental; H53.149 Visual discomfort, unspecified; R10.84 Generalized abdominal pain
CPT/HCPCS: 36415; 70551; 80048; 80053; 80061; 81003; 81240; 81241; 83036; 83090; 83605; 83690; 84702; 85025; 85300; 85303; 85306; 85307; 85610; 85613; 85730; 86140; 86147; 93005; 93880; 96361; 96374; 99283; A9270-GY; G0378; J2405

== ENCOUNTER 2017-12-22 08:15 | Inpatient (IN) | payer OTHER, MEDICAID ==
--- NOTE | 2017-12-22 10:17 | HP ---
General Information - General Information Maternal Age: 37 Grav: 6 Para: 3 SAB: 1 IEA: 1 Estimated Due Date: 01/06/18 Determined By: LMP Gestational Age in Weeks and Days: 37 Weeks and 6 Days Maternal Blood Type and Rh: A Positive - Results this Serology/RPR Result: Non-Reactive Rubella Result: Non-Immune HBsAg Result: Negative HIV Result: Negative GBS Culture Result: Negative Past Medical History Delivery History: Hx Uncomplicated Vaginal Delivery Pertinent Past Medical History: See Records Past Medical History Comment: Migraine 05/2017 with R sided paralysis Pertinent Past Surgical History: None Pertinent Family History: Non-Contributory - Antepartal Records Antepartal Records: Reviewed, Complicated by: - Marginal previa, resolved. AMA normal genetic screening. Review of Systems Constitutional: Comfortable CV Complaint: No Respiratory: Shortness of Breath: No Gastrointestinal: No Nausea/Vomiting Genitourinary: Leaking Fluid - Started leaking pink tinged fluid at 0645., No Dysuria, No Bleeding Musculoskeletal: No Complaint Neurological: No Headache Movement: Normal Exam Allergies/Adverse Reactions: Allergies latex Allergy (Verified 12/16/17 23:36) Hives BP 122/88; P 107; T 98.1; R 18. Lab Values - Entire Visit: Laboratory Tests 12/22/17 08:39 Vag Amniotic Fld Detect Positive - Measurements Height: 5 ft 2 in Weight: 205 lb Weight in lbs: 205 Body Mass Index (BMI): 37.5 Pre- Weight: 188 lb Weight Gained This : 17 lbs and 0 ozs - Exam Abdomen: No Upper Quadrant Pain Breast: Breast Exam Deferred CVA: No CVA Tenderness Extremities: No Edema Heart: Normal Rhythm/Heart Sounds HEENT: No Significant Findings Lungs: Clear Bilaterally Rectal: Rectal Exam Deferred Thyroid: No Thyromegaly - Cervical Exam 4/100/-3, BBOW. Vtx confirmed with ultrasound. - Abdominal Exam Abdomen Exam: Non-Tender, Fundal Height Consistent with Dates - Membranes Membrane Status: SROM - Ultrasound/Biophysical Profile Ultrasound Status: Bedside Exam - Vertex EFM Findings - External Monitor Findings Baseline Heart Rate: 145 External Monitor Findings: Accelerations Present, No Pattern of Variable or Late Decelerations, Variability Moderate Contractions: None - moderate cramping Assessment/Plan - Plan Plan: Observe, Early Labor - Date/Time of Admission Date of Admission: 12/22/17 Time of Admission: 10:25
[2017-12-22 10:52] LABS: ABS Basophils 0 10^3/ul (0-0.2); ABS Eosinophils 0.1 10^3/ul (0-0.6); ABS Lymphocytes 0.9 10^3/ul (1.0-4.8); ABS Monocytes 0.6 10^3/ul (0-0.8); ABS Nucleated RBC 0 10^3/ul; Eosinophil % 1.3 % (0-6); Hematocrit 37 % (35-47); Hemoglobin 12.3 g/dl (12.0-16.0); Mean Corpuscular HGB Conc 34 g/dl (31-36); Mean Corpuscular Hemoglobin 30 pg (27-31); Mean Corpuscular Volume 89 fL (80-97); Mean Platelet Volume 7.2 um3 (7.4-10.4); Nucleated Red Blood Cells % 0; Platelet Count 164 10^3/ul (150-450); Red Blood Count 4.12 10^6/ul (4.0-5.4); Red Cell Distribution Width 14 % (10.5-15); White Blood Count 8.6 10^3/ul (3.5-10.8)
[2017-12-22] MEDS ORDERED: Oxytocin in LR* 20 UNITS/1,000 ML BAG IVPB ONE (12:33)
[2017-12-22] MEDS ORDERED: Ibuprofen TAB* 600 MG ONE (17:04)
[2017-12-22] MEDS ORDERED: Witch Hazel PAD* JAR TOPICAL PRN (17:12)
[2017-12-22] MEDS ORDERED: Acetaminophen TAB* 325 MG PO PRN (17:12)
[2017-12-22] MEDS ORDERED: Measles, Mumps,Rubella VACC* 0.5 ML/VIAL SUBCUT ONE (17:12)
[2017-12-22] MEDS ORDERED: Dibucaine 1% 28.35 GM TUBE PR PRN (17:12)
[2017-12-22] MEDS ORDERED: Oxytocin in LR* 20 UNITS/1,000 ML BAG IVPB SCH (18:00)
[2017-12-22] MEDS ORDERED: Tetan/Diph/Pertus SYR(Tdap)* 0.5 ML SYR(BOOSTRIX) use SYR IM ONE (18:03)
[2017-12-22] MEDS: Docusate CAP* 100 MG PO SCH (22:12)
[2017-12-22] MEDS: Ibuprofen TAB* 600 MG PO PRN (22:29)
[2017-12-23] MEDS: Ibuprofen TAB* 600 MG PO PRN ×3 (04:24→20:49)
[2017-12-23 06:25] LABS: ABS Basophils 0.1 10^3/ul (0-0.2); ABS Eosinophils 0.1 10^3/ul (0-0.6); ABS Lymphocytes 1.4 10^3/ul (1.0-4.8); ABS Monocytes 0.9 10^3/ul (0-0.8); ABS Neutrophils 9.2 10^3/ul (1.5-7.7); ABS Nucleated RBC 0 10^3/ul; Eosinophil % 1.1 % (0-6); Hematocrit 33 % (35-47); Hemoglobin 11.4 g/dl (12.0-16.0); Lymphocyte % 11.8 % (25-47); Mean Corpuscular HGB Conc 35 g/dl (31-36); Mean Corpuscular Hemoglobin 31 pg (27-31); Mean Corpuscular Volume 88 fL (80-97); Mean Platelet Volume 7.3 um3 (7.4-10.4); Nucleated Red Blood Cells % 0.1; Platelet Count 161 10^3/ul (150-450); Red Blood Count 3.74 10^6/ul (4.0-5.4); Red Cell Distribution Width 14 % (10.5-15); White Blood Count 11.6 10^3/ul (3.5-10.8)
[2017-12-23] MEDS ORDERED: Ferrous Gluconate TAB* 324 MG TAB PO SCH (09:00)
[2017-12-23] MEDS: Docusate CAP* 100 MG PO SCH ×3 (10:10→20:48)
[2017-12-24 08:02] VITALS: BP 128/83
[2017-12-24] MEDS: Docusate CAP* 100 MG PO SCH (08:23)
[2017-12-24] MEDS: Ibuprofen TAB* 600 MG PO PRN (08:23)
== END 2017-12-24 10:01 | disposition home or self-care (01) | DRG 560 ==
LOC: MCHOBOUT 08:15 → MCHOB 09:59
PROVIDERS: ADMIT Midwife; ATTEND Midwife
PROC: 10E0XZZ Delivery of Products of Conception, External Approach (ICD-10-PCS; principal; 2017-12-22)
PROC: 10907ZC Drainage of Amniotic Fluid, Therapeutic from Products of Conception, Via Natural or Artificial Opening (ICD-10-PCS; 2017-12-22)
DX: O99.52 Diseases of the respiratory system complicating childbirth (principal); J45.909 Unspecified asthma, uncomplicated; Z91.040 Latex allergy status; Z3A.37 37 weeks gestation of pregnancy; Z37.0 Single live birth
CPT/HCPCS: 36415; 84112; 85025; 86850; 86900; 86901; 90707; 90715; A9270-GY

== ENCOUNTER 2019-05-13 21:23 | Emergency (ER) | payer BC, MEDICAID ==
[2019-05-13 23:48] VITALS: BP 148/93
== END 2019-05-14 00:13 | disposition left against medical advice (07) ==
LOC: ED 21:23
DX: R51 Headache (principal); Z53.21 Procedure and treatment not carried out due to patient leaving prior to being seen by health care provider

== ENCOUNTER 2019-05-31 17:25 | Emergency (ER) | payer BC, MEDICAID ==
[2019-05-31 17:41] VITALS: BP 122/91
--- NOTE | 2019-05-31 18:00 | UC ---
Skin Complaint HPI - HPI Summary HPI Summary: The patient is a 38 yo female that noted an insect sting her left lower abd about 6 days ago She squeezed it an serous fluid followed by blood was expressed since then has had progressively worsening induration and resdness as well as increased pain no f/c no n/c no hx of MRSA - History of Current Complaint Chief Complaint: UCSkin Time Seen by Provider: 05/31/19 17:39 Stated Complaint: SKIN IRRITATION Hx Obtained From: Patient Hx Last Menstrual Period: irreg. Onset/Duration: Gradual Onset Skin Exposure Onset/Duration: Days Ago Timing: Constant Onset Severity: Mild Current Severity: Moderate Pain Intensity: 6 Pain Scale Used: 0-10 Numeric Location: Discrete Character: Pain, Redness, Raised, Painful Aggravating Factor(s): Touch Alleviating Factor(s): Nothing Associated Signs & Symptoms: Positive: Tenderness Related History: Insect Bite/Sting - Allergy/Home Medications Allergies/Adverse Reactions: Allergies Allergy/AdvReac Type Severity Reaction Status Date / Time latex Allergy Hives Verified 05/31/19 17:35 Home Medications: Home Medications Ibuprofen TAB* [Motrin TAB* 600 MG] 600 mg PO ONCE 05/31/19 [History Confirmed 05/31/19] PMH/Surg Hx/FS Hx/Imm Hx Previously Healthy: Yes - Surgical History Surgical History: None Surgery Procedure, Year, and Place: tubes in ears - Family History Known Family History: Positive: Hypertension, Non-Contributory - Social History Alcohol Use: None Alcohol Amount: quit when found out she was Substance Use Type: None Smoking Status (MU): Never Smoked Tobacco Have You Smoked in the Last Year: No - Immunization History Most Recent Influenza Vaccination: 06/27/14 Most Recent Tetanus Shot: 03/24 Most Recent Pneumonia Vaccination: unknown Review of Systems All Other Systems Reviewed And Are Negative: Yes Constitutional: Positive: Negative Skin: Positive: Negative Eyes: Positive: Negative ENT: Positive: Negative Respiratory: Positive: Negative Cardiovascular: Positive: Negative Gastrointestinal: Positive: Negative Genitourinary: Positive: Negative Motor: Positive: Negative Neurovascular: Positive: Negative Musculoskeletal: Positive: Negative Neurological: Positive: Negative Psychological: Positive: Negative Physical Exam Triage Information Reviewed: Yes Appearance: Well-Appearing, No Pain Distress, Well-Nourished Vital Signs: Initial Vital Signs Temp 98.7 F 05/31/19 17:36 Pulse 84 05/31/19 17:36 Resp 18 05/31/19 17:36 BP 122/91 05/31/19 17:36 Pulse Ox 100 05/31/19 17:36 Vital Signs Reviewed: Yes Eyes: Positive: Conjunctiva Clear ENT: Positive: Hearing grossly normal. Negative: Nasal congestion, Nasal drainage, Trismus, Muffled voice, Hoarse voice Neck: Positive: Supple, Nontender, No Lymphadenopathy Respiratory: Positive: Lungs clear, Normal breath sounds, No respiratory distress, No accessory muscle use Cardiovascular: Positive: RRR, No Murmur Abdomen Description: Positive: Nontender, No Organomegaly. Negative: CVA Tenderness (R), CVA Tenderness (L), Distended, Guarding Musculoskeletal: Positive: ROM Intact, No Edema Neurological: Positive: Alert Psychological Exam: Normal Skin Exam: Other - see image Skin: Positive: Other - 3x6 cm of induration, 4 x 11 cm area of overlying cellulitis Images Front/Back of Body, Lg ([place]): 1 - induration with over lying cellulitis Diagnostics - Radiology No standard instances Radiology Interpretation Completed By: Radiologist Summary of Radiographic Findings: soft tissue ultrasound: Soft tissue thickening and induration in the area of concern measuring 4 x 2 x 5.6 cm. No absces Course/Dx - Diagnoses Provider Diagnosis: Cellulitis of left abdominal wall Discharge ED - Sign-Out/Discharge Documenting (check all that apply): Patient Departure All imaging exams completed and their final reports reviewed: Yes - Discharge Plan Condition: Stable Disposition: HOME Prescriptions: Cephalexin CAP* [Keflex CAP*] 500 mg PO QID #28 cap Sulfamethox/Trimethoprim DS* [Bactrim DS 800/160 TAB*] 1 tab PO BID #14 tab Patient Education Materials: Cellulitis (ED) Referrals: Shefali Lopez MD [Primary Care Provider] - If Needed Additional Instructions: This may go on to form an abscess that needs to be drained ....needs follow up warm compresses 4x day for 10-15 minutes If you develop a fever or worsening symptoms go to the ER I suggest you get rechecked in 48-72 hours - Billing Disposition and Condition Condition: STABLE Disposition: Home
[2019-05-31] MEDS ORDERED: Sulfamethox/Trimethoprim DS 800/160* TAB PO ONE (18:06)
[2019-05-31] MEDS ORDERED: Cephalexin CAP* 500 MG PO ONE (19:15)
--- NOTE | 2019-06-01 17:31 | UC ---
- Progress Note Progress Note: The patient called here and states she's having some nausea as result of the antibiotics that she is taking. I am sending and a prescription for Zofran. She also states she thinks the abdominal pain is increasing therefore I advised her to follow-up in the emergency room for any worsening symptoms. She denies fever. Course/Dx - Diagnoses Provider Diagnoses: Cellulitis of left abdominal wall Discharge ED - Sign-Out/Discharge Documenting (check all that apply): Post-Discharge Follow Up All imaging exams completed and their final reports reviewed: Yes - Discharge Plan Condition: Stable Disposition: HOME Prescriptions: Cephalexin CAP* [Keflex CAP*] 500 mg PO QID #28 cap Sulfamethox/Trimethoprim DS* [Bactrim DS 800/160 TAB*] 1 tab PO BID #14 tab Patient Education Materials: Cellulitis (ED) Referrals: Shefali Lopez MD [Primary Care Provider] - If Needed Additional Instructions: This may go on to form an abscess that needs to be drained ....needs follow up warm compresses 4x day for 10-15 minutes If you develop a fever or worsening symptoms go to the ER I suggest you get rechecked in 48-72 hours - Billing Disposition and Condition Condition: STABLE Disposition: Home
== END 2019-05-31 19:30 | disposition home or self-care (01) ==
LOC: UCEAST 17:25
DX: L03.311 Cellulitis of abdominal wall (principal); Z91.040 Latex allergy status
CPT/HCPCS: 99212; A9270-GY; G0463

== ENCOUNTER 2019-06-01 20:36 | Emergency (ER) | payer BC, MEDICAID ==
--- NOTE | 2019-06-01 21:29 | ED ---
Skin Complaint - HPI Summary HPI Summary: The pt is a 38 yr old female presenting to [facility] c/o painful infection on her abdomen beginning 1 week [employer]. About 1 week ago, she was lying in bed when she felt something itchy on her stomach that grew into a pimple over a few days. She popped the pimple and the area around it became red, swollen, and painful over the next week. She rates her pain severity due to the abscess an 8/10. She notes that the pain is aggravated when moving and even lying down. She also reports nausea and possible fever but denies any vomiting or chills. Allergies noted. Medications reviewed. - History of Current Complaint Chief Complaint: EDRashSkinAbscess Time Seen by Provider: 06/01/19 21:10 Stated Complaint: MASS ON STOMACH UNDER THE SKIN PER PT Hx Obtained From: Patient Hx Last Menstrual Period: irreg. Onset/Duration: Started Days Ago, Started Weeks Ago Skin Exposure Onset/Duration: Days Ago Timing: Lasting Days Onset Severity: Severe Current Severity: Severe Pain Intensity: 8 Pain Scale Used: 0-10 Numeric Skin Location: Abdomen Aggravating Symptom(s): Other: - movement and lying down Alleviating Symptom(s): Nothing Associated Signs & Symptoms: Negative - vomiting, chills, Nausea, Fever, Rash - painful, swollen abscess on abd skin - Allergy/Home Medications Allergies/Adverse Reactions: Allergies Allergy/AdvReac Type Severity Reaction Status Date / Time latex Allergy Hives Verified 05/31/19 17:35 PMH/Surg Hx/FS Hx/Imm Hx Endocrine/Hematology History: Denies: Hx Diabetes, Hx Thyroid Disease Cardiovascular History: Denies: Hx Hypertension, Hx Pacemaker/ICD Respiratory History: Reports: Hx Asthma - as a child, exercise induced Denies: Hx Chronic Obstructive Pulmonary Disease (COPD) GI History: Denies: Hx Ulcer Sensory History: Denies: Hx Contacts or Glasses, Hx Hearing Aid Opthamlomology History: Denies: Hx Contacts or Glasses Neurological History: Reports: Hx Migraine Psychiatric History: Denies: Hx Panic Disorder - Surgical History Surgery Procedure, Year, and Place: tubes in ears Infectious Disease History: No Infectious Disease History: Denies: Hx Clostridium Difficile, Hx Hepatitis, Hx Human Immunodeficiency Virus (HIV), Hx of Known/Suspected MRSA, Hx Shingles, Hx Tuberculosis, Hx Known/ Suspected VRE, Hx Known/Suspected VRSA, History Other Infectious Disease, Traveled Outside the [place] in Last 30 Days - Family History Known Family History: Positive: Hypertension - Social History Alcohol Use: None Alcohol Amount: quit when found out she was Substance Use Type: Reports: None Smoking Status (MU): Never Smoked Tobacco Have You Smoked in the Last Year: No Review of Systems Positive: Fever. Negative: Chills Positive: Nausea. Negative: Vomiting Skin: Other - pos - painful, swollen abscess on skin All Other Systems Reviewed And Are Negative: Yes Physical Exam - Summary Physical Exam Summary: Constitutional: Well-developed, Well-nourished, Alert. (-) Distressed Skin: Warm, Dry HENT: Normocephalic; Atraumatic Eyes: Conjunctiva normal Neck: Musculoskeletal ROM normal neck. (-) JVD, (-) Stridor, (-) Tracheal deviation Cardio: Rhythm regular, rate normal, Heart sounds normal; Intact distal pulses; The pedal pulses are 2+ and symmetric. Radial pulses are 2+ and symmetric. (-) Murmur Pulmonary/Chest wall: Effort normal. (-) Respiratory distress, (-) Wheezes, (-) Rales Abd: Soft, left abdominal wall with erythema small area of induration no fluctuance, part of erythema extends over line drawn yesterday, part recedes behind line, no tenderness that extends beyond line. , (-) Distension, (-) Guarding, (-) Rebound Musculoskeletal: (-) Edema Lymph: (-) Cervical adenopathy Neuro: Alert, Oriented x3 Psych: Mood and affect Normal Triage Information Reviewed: Yes Vital Signs On Initial Exam: Initial Vitals Temp Pulse Resp BP Pulse Ox 98.3 F 86 18 122/82 98 06/01/19 20:36 06/01/19 20:36 06/01/19 20:36 06/01/19 20:36 06/01/19 20:36 Vital Signs Reviewed: Yes Diagnostics - Vital Signs Vital Signs Temp Pulse Resp BP Pulse Ox 06/01/19 20:36 98.3 F 86 18 122/82 98 - Laboratory Lab Statement: Any lab studies that have been ordered have been reviewed, and results considered in the medical decision making process. Course/Dx - Course Course Of Treatment: Patient is here with abdominal wall cellulitis. Patient has no drainable abscess on exam. Patient started on Bactrim and Keflex yesterday. Patient has been on 24 hours of antibiotics with no improvement. Patient is clinically well-appearing with no evidence of systemic infection. Patient was encouraged to continue antibiotics and that she did not need admission for IV antibiotic this time. Patient is discharged with tramadol for pain control. - Diagnoses Provider Diagnoses: Abdominal wall cellulitis Discharge ED - Sign-Out/Discharge Documenting (check all that apply): Patient Departure - discharge Patient Received Moderate/Deep Sedation with Procedure: No - Discharge Plan Condition: Stable Disposition: HOME Prescriptions: traMADol TAB* [Ultram*] 50 mg PO Q8HR #12 tab MDD 3 tablets Patient Education Materials: Cellulitis (ED) Referrals: Shefali Lopez MD [Primary Care Provider] - 3 Days Additional Instructions: Please take your medications as prescribed. Please follow the instructions we discussed in the room for care of your abdomen. PLEASE RETURN TO EMERGENCY DEPARTMENT FOR ANY NEW OR WORSENING SYMPTOMS. Please follow up with you primary care physician. Please make all follow-ups in 1-3 days unless I advise you otherwise. - Billing Disposition and Condition Condition: STABLE Disposition: Home - Attestation Statements Document Initiated by Riccardo: Yes Documenting Scribe: Dominguez Rodrigues Provider For Whom Riccardo is Documenting (Include Credential): Benson Mullins MD Scribe Attestation: Dominguez Jackson, scribed for Benson Mullins MD on 06/01/19 at 231. Scribe Documentation Reviewed: Yes Provider Attestation: The documentation as recorded by the Dominguez hunter accurately reflects the service I personally performed and the decisions made by ok, Benson uMllins MD Status of Scribe Document: Viewed
[2019-06-01] MEDS ORDERED: traMADol TAB* 50 MG PO ONE (21:45)
[2019-06-01 21:46] VITALS: BP 148/90
== END 2019-06-01 21:45 | disposition home or self-care (01) ==
LOC: ED 20:36
DX: L03.311 Cellulitis of abdominal wall (principal); Z91.040 Latex allergy status
CPT/HCPCS: 99282; A9270-GY

== ENCOUNTER 2019-06-03 13:53 | Emergency (ER) | payer BC, MEDICAID ==
[2019-06-03 14:22] VITALS: BP 133/84
--- NOTE | 2019-06-03 14:32 | UC ---
Skin Complaint HPI - HPI Summary HPI Summary: worsening pain in cellulitic area on left side of abdomen---is nauseated--- guarded movement---has pain of significant disproportion to apparent pathology - History of Current Complaint Chief Complaint: UCSkin Time Seen by Provider: 06/03/19 14:23 Stated Complaint: SKIN COMPLAINT Hx Obtained From: Patient Hx Last Menstrual Period: IUD ?: No Onset/Duration: Gradual Onset, Lasting Days - 4, Still Present Timing: Constant Pain Intensity: 7 Pain Scale Used: 0-10 Numeric Location: Discrete, Other - and radiating through abdomen Character: Pain, Redness Aggravating Factor(s): Nothing Alleviating Factor(s): Nothing Associated Signs & Symptoms: Positive: Nausea, Tenderness Related History: Insect Bite/Sting - possible - Allergy/Home Medications Allergies/Adverse Reactions: Allergies Allergy/AdvReac Type Severity Reaction Status Date / Time latex Allergy Hives Verified 06/03/19 14:22 PMH/Surg Hx/FS Hx/Imm Hx Previously Healthy: Yes - Surgical History Surgical History: Yes Surgery Procedure, Year, and Place: Tubes in ears - Family History Known Family History: Positive: Hypertension, Non-Contributory - Social History Occupation: Employed Full-time Lives: With Family Alcohol Use: None Alcohol Amount: quit when found out she was Substance Use Type: None Smoking Status (MU): Never Smoked Tobacco Have You Smoked in the Last Year: No - Immunization History Most Recent Influenza Vaccination: 06/27/14 Most Recent Tetanus Shot: 03/24 Most Recent Pneumonia Vaccination: unknown Review of Systems All Other Systems Reviewed And Are Negative: Yes Constitutional: Positive: Chills Skin: Positive: Other - erthema tenderness left side of abdomen Eyes: Positive: Negative ENT: Positive: Negative Respiratory: Positive: Negative Cardiovascular: Positive: Negative Gastrointestinal: Positive: Negative Genitourinary: Positive: Negative Motor: Positive: Negative Neurovascular: Positive: Negative Musculoskeletal: Positive: Negative Neurological: Positive: Negative Psychological: Positive: Negative Is Patient Immunocompromised?: No Physical Exam Triage Information Reviewed: Yes Appearance: Well-Nourished, Ill-Appearing, Pain Distress Vital Signs: Initial Vital Signs Temp 97.8 F 06/03/19 14:18 Pulse 92 06/03/19 14:18 Resp 18 06/03/19 14:18 BP 133/84 06/03/19 14:18 Pulse Ox 98 06/03/19 14:18 Vital Signs Reviewed: Yes Eye Exam: Normal Eyes: Positive: Conjunctiva Clear ENT Exam: Normal ENT: Positive: Normal ENT inspection, Hearing grossly normal. Negative: Trismus , Muffled voice, Hoarse voice Dental Exam: Normal Neck exam: Normal Neck: Positive: Supple, Nontender Respiratory Exam: Normal Respiratory: Positive: Chest non-tender, No respiratory distress, No accessory muscle use Cardiovascular Exam: Normal Cardiovascular: Positive: RRR, Pulses Normal, Brisk Capillary Refill Abdomen Description: Positive: No Organomegaly, Soft, Guarding. Negative: Nontender, CVA Tenderness (R), CVA Tenderness (L), Peritoneal Signs Bowel Sounds: Positive: Present Musculoskeletal Exam: Normal Musculoskeletal: Positive: Strength Intact, ROM Intact, No Edema Neurological Exam: Normal Neurological: Positive: Alert, Muscle Tone Normal Psychological Exam: Normal Skin: Positive: Other - erythema--left side of abdomen--no significant improvement and today has worsening pain with nausea Course/Dx - Course Course Of Treatment: go to ED for assesment --and further care that cannot be provided at urgent care - Diagnoses Provider Diagnosis: Cellulitis, Abscess Discharge ED - Sign-Out/Discharge Documenting (check all that apply): Patient Departure All imaging exams completed and their final reports reviewed: No Studies - Discharge Plan Condition: Stable Disposition: HOME-RECOMMEND TO ED Patient Education Materials: Wound Infection (ED) Referrals: Shefali Lopez MD [Primary Care Provider] - Additional Instructions: Please go to ED for further assessment of abdominal wall cellulitis - Billing Disposition and Condition Condition: STABLE Disposition: Home-Recommend to ED
== END 2019-06-03 14:44 | disposition home health service (06) ==
LOC: UCEAST 13:53
DX: L03.311 Cellulitis of abdominal wall (principal); Z91.040 Latex allergy status
CPT/HCPCS: 99212; G0463

== ENCOUNTER 2019-06-03 15:02 | Emergency (ER) | payer BC, MEDICAID ==
--- NOTE | 2019-06-03 16:09 | ED ---
Skin Complaint - HPI Summary HPI Summary: This patient is a 38 year old F presenting to [facility] accompanied by female friend with a chief complaint of rash on left abdomen since over a week ago. Symptoms aggravated by nothing. Symptoms alleviated by nothing. Pt reports she itched her stomach which led to a bump. Pt reports 1-2 days later the bump turned into a pimple which she popped and white drainage came out. Pt reports 1- 2 days later the bump filled up again with the area around it turning red and spreading out and expanding. Pt reports the bump turned hard and painful to touch with shooting pains that she feels even when shes still. Pt reports pain has not improved since taking abx, Bactrim & Keflex, which she started 3 days ago along with anti-nausea medication due to her vomiting and a lower dose pain medication. Pt reports she visited medical centers 4 times for this issue: 05/31/19 (Ultrasound was done and showed no fluid), , 06/01/10 , today at [facility], and today at [facility]. Pt denies fever but has vomited 4 x since onset even on Zofran. Home Medications Medication Instructions Recorded Confirmed Type Cephalexin CAP* [Keflex CAP*] 500 mg PO QID #28 cap 05/31/19 06/03/19 Rx Ibuprofen TAB* [Motrin TAB* 600 MG] 600 mg PO ONCE 05/31/19 06/03/19 History Sulfamethox/Trimethoprim DS* 1 tab PO BID #14 tab 05/31/19 06/03/19 Rx [Bactrim DS 800/160 TAB*] Ondansetron TAB* [Zofran 4 MG Tab*] 4 mg PO Q8H PRN #10 tab 06/01/19 06/03/19 Rx traMADol TAB* [Ultram*] 50 mg PO Q8HR #12 tab MDD 3 tablets 06/01/19 06/03/19 Rx - History of Current Complaint Chief Complaint: EDRashSkinAbscess Time Seen by Provider: 06/03/19 15:49 Stated Complaint: ABD PAIN Hx Obtained From: Patient Hx Last Menstrual Period: IUD Onset/Duration: Started Weeks Ago, Still Present Timing: Constant Pain Intensity: 7 Pain Scale Used: 0-10 Numeric Aggravating Symptom(s): Nothing Alleviating Symptom(s): Nothing Associated Signs & Symptoms: Negative - denies fever, Vomiting - Allergy/Home Medications Allergies/Adverse Reactions: Allergies Allergy/AdvReac Type Severity Reaction Status Date / Time latex Allergy Hives Verified 06/03/19 15:52 PMH/Surg Hx/FS Hx/Imm Hx Endocrine/Hematology History: Denies: Hx Diabetes, Hx Thyroid Disease Cardiovascular History: Denies: Hx Hypertension, Hx Pacemaker/ICD Respiratory History: Reports: Hx Asthma - as a child, exercise induced Denies: Hx Chronic Obstructive Pulmonary Disease (COPD) GI History: Denies: Hx Ulcer Sensory History: Denies: Hx Contacts or Glasses, Hx Hearing Aid Opthamlomology History: Denies: Hx Contacts or Glasses Neurological History: Reports: Hx Migraine Psychiatric History: Denies: Hx Panic Disorder - Surgical History Surgery Procedure, Year, and Place: Tubes in ears Infectious Disease History: No Infectious Disease History: Denies: Hx Clostridium Difficile, Hx Hepatitis, Hx Human Immunodeficiency Virus (HIV), Hx of Known/Suspected MRSA, Hx Shingles, Hx Tuberculosis, Hx Known/ Suspected VRE, Hx Known/Suspected VRSA, History Other Infectious Disease, Traveled Outside the in Last 30 Days - Family History Known Family History: Positive: Hypertension, Non-Contributory - Social History Alcohol Use: Occasionally Alcohol Amount: quit when found out she was Hx Substance Use: No Substance Use Type: Reports: None Hx Tobacco Use: No Smoking Status (MU): Never Smoked Tobacco Have You Smoked in the Last Year: No Review of Systems Negative: Fever Positive: Vomiting, Nausea Positive: Rash All Other Systems Reviewed And Are Negative: Yes Physical Exam - Summary Physical Exam Summary: General: Well-developed, Well-nourished FEMALE. Appears in moderate distress. HEENT: Normocephalic, Atraumatic. Eyes: Conjuctiva normal, PERRL. Ears: TMs within normal limits. Nares: (-) discharge, (-) erythema. Oropharynx: Clear, mucous membranes moist, (-) exudates. Neck: Soft, FROM, (-) lymphadenopathy, (-) thyromegaly, (-) JVD. Cardiovascular: Normal sinus rhythm, (-) murmur. Lungs: Clear to auscultation bilaterally (-) wheezes, (-) rales, (-) rhonchi. Abdomen:Left lower quadrant tenderness, (-) organomegaly, normal bowel sounds. Back: (-) CVA tenderness Extremities: No edema. Skin: Warm, dry, 5 cm area of firm induration erythematous, tender, warm on the left abdominal wall Neuro: Alert and oriented x3, no focal deficits. Psychiatric: Mood normal, affect normal. Triage Information Reviewed: Yes Vital Signs On Initial Exam: Initial Vitals Temp Pulse Resp BP Pulse Ox 98.1 F 101 16 123/86 98 06/03/19 15:08 06/03/19 15:08 06/03/19 15:08 06/03/19 15:08 06/03/19 15:08 Vital Signs Reviewed: Yes Diagnostics - Vital Signs Vital Signs Temp Pulse Resp BP Pulse Ox 06/03/19 15:53 86 98 06/03/19 15:51 130/101 06/03/19 15:08 98.1 F 101 16 123/86 98 - Laboratory Result Diagrams: 06/03/19 17:04 06/03/19 17:04 Lab Statement: Any lab studies that have been ordered have been reviewed, and results considered in the medical decision making process. Re-Evaluation - Re-Evaluation First Eval Re-Evaluation Time: 18:15 Comment: I have discussed results with the patient and (Sx) is resolved. Discussed symptoms that warrant immediate return to ED. Course/Dx - Course Assessment/Plan: This patient is a 38 year old F presenting to [facility] accompanied by female friend with a chief complaint of rash on left abdomen since over a week ago. Pt reports pain has not improved with abx, Bactrim & Keflex, which she started 3 days ago along with anti-nausea medication due to her vomiting and a lower dose pain medication. Pt denies fever but has vomited 4 x since onset even on Zofran. Physical Exam Findings reveals no abnormalities except for 5 cm area of firm induration erythematous, tender, warm on the left abdominal wall, Left lower quadrant tenderness. Test results with no significant abnormalities expect for MPV 6.5 L, AST 11 L, C-Reactive Protein 49.59 H. In the ED course the patient was given Ketorolac Tromethamine 15 mg, Ondansetron Hcl 4 mg, and piperacillin Sod/Tazobactam Sod 3.375 gm in Sodium Chloride 200 mls/hr. Patient will be discharged with prescription for Augmentin and follow up from Dr. Lopez. The patient is agreeable with this plan. - Diagnoses Provider Diagnoses: Cellulitis Discharge ED - Sign-Out/Discharge Documenting (check all that apply): Patient Departure - discharge Patient Received Moderate/Deep Sedation with Procedure: No - Discharge Plan Condition: Stable Disposition: HOME Prescriptions: Amoxicillin/Clavulanate TAB* [Augmentin TAB 875*] 875 mg PO BID #20 tab Patient Education Materials: Cellulitis (ED) Referrals: Shefali Lopez MD [Primary Care Provider] - 3 Days Additional Instructions: Please follow up with your primary care physician within three days. Please return to ED for any new or worsening symptoms. - Billing Disposition and Condition Condition: STABLE Disposition: Home - Attestation Statements Document Initiated by Riccardo: Yes Documenting Radhaibe: Agnes Murrell Provider For Whom Riccardo is Documenting (Include Credential): Dr. Debo Ibarra MD Scribe Attestation: Agnes Jackson, scribed for Dr. Debo Ibarra MD on 06/03/19 at 2022. Scribe Documentation Reviewed: Yes Provider Attestation: The documentation as recorded by the Agnes hunter accurately reflects the service I personally performed and the decisions made by me, Dr. Debo Ibarra MD Status of Scribdonya Document: Viewed
[2019-06-03] MEDS ORDERED: Piperacillin/Tazobac ADVAN(*) 3.375 GM in NS 0.9% 100 ML* 100 ML IVPB ONE (16:45)
[2019-06-03] MEDS ORDERED: Ondansetron INJ* 2 MG/ML VIAL IV ONE (17:11)
[2019-06-03] MEDS ORDERED: Ketorolac INJ* 30 MG/ML 1 ML VIAL IV PUSH ONE (17:11)
[2019-06-03 17:15] LABS: ABS Eosinophils 0.2 10^3/ul (0-0.6); ABS Lymphocytes 1.1 10^3/ul (1.0-4.8); ABS Monocytes 0.5 10^3/ul (0-0.8); ABS Neutrophils 5.5 10^3/ul (1.5-7.7); Eosinophil % 2.3 %; Hematocrit 36 % (35-47); Hemoglobin 12.2 g/dL (12.0-16.0); Lymphocyte % 15.1 %; Mean Corpuscular HGB Conc 34 g/dL (31-36); Mean Corpuscular Hemoglobin 29 pg (27-31); Mean Corpuscular Volume 88 fL (80-97); Mean Platelet Volume 6.5 fL (7.4-10.4); Platelet Count 252 10^3/uL (150-450); Red Blood Count 4.15 10^6 /uL (3.70-4.87); Red Cell Distribution Width 13 % (10-15); White Blood Count 7.3 10^3/uL (3.5-10.8)
[2019-06-03 17:36] LABS: ALT 7 U/L (7-52); AST 11 U/L (13-39); Albumin 4.1 g/dL (3.2-5.2); Albumin/Globulin Ratio 1.6 (1-3); Alkaline Phosphatase 53 U/L (34-104); Anion Gap 7 mmol/L (2-11); BUN/Creatinine Ratio 11.8 (8-20); Blood Urea Nitrogen 11 mg/dL (6-24); C Reactive Protein 49.59 mg/L (<8.01); CO2 Carbon Dioxide 26 mmol/L (22-32); Chloride 107 mmol/L (101-111); EGFR African American 81.2 (>60); EGFR Non-African American 67.1 (>60); Globulin 2.6 g/dL (2-4); Glucose 98 mg/dL (70-100); Potassium 3.7 mmol/L (3.5-5.0); Sodium 140 mmol/L (135-145); Total Protein 6.7 g/dL (6.4-8.9)
[2019-06-03 17:39] LABS: HCG Pregnancy < 0.60 mIU/mL
[2019-06-03 18:43] VITALS: BP 127/82
== END 2019-06-03 18:35 | disposition home or self-care (01) ==
LOC: ED 15:02
DX: L03.311 Cellulitis of abdominal wall (principal); Z91.040 Latex allergy status; Z79.899 Other long term (current) drug therapy
CPT/HCPCS: 36415; 80053; 83605; 84702; 85025; 86140; 87040; 96365; 96366; 96375; 99282; J1885; J2405; J2543